=== PATIENT | male | born 1965 | race Caucasian/White ===

== ENCOUNTER 2023-04-19 08:35 | Outpatient (AMB) | payer OTHER, SELFPAY ==
[2023-04-19 08:35] VITALS: BMI 36.3
--- NOTE | 2023-04-19 09:31 | A.OFFVIS_ITS ---
Intake VS Expanded 04/19/23 08:35 Height 5 ft 7.99 in Weight 238 lb 8.642 oz BMI 36.3 Intake Visit Reasons: DM/ Confirmed Medication List - Last Reconciled 04/26/[address], LDN dulaglutide (Trulicity) 1.5 mg subcut QWEEK metformin 500 mg PO TID HPI Nutrition Presentation Details Pt presents for MNT for T2DM. The Pt was referred by Dr. Calro Yeager Pt reports needing information on diet recommendations. He reports forgetting to take his DM meds. Today we will discuss basic nutrition information for DM food frequency ETOH 2-3 servings/mixed smoking:denies starches > 23 servings fruits:0-3 protein 10-12 oz/d non starchy vegetables 2 serving/d dairy : 4 serving/d beverages: water, diet beverages physical activity: sedentary A1c at 8.4% on 12/2022 Chol 123, Tg 251, HDL 26, LDL 47 Diagnosis Nutrition problem #1 food nutri know defi As related to (etiology) #1 diagnosis As evidenced by (sign/symptom) #1 knowledge deficit of diet Most Recent Diabetes Results: No Data to Display Assessment & Plan Assessment & Plan (1) T2DM (type 2 diabetes mellitus): Code(s): E11.9 - Type 2 diabetes mellitus without complications Plan: wt: 108 kg Est kcal needs as per MSJ: 2300 (40% carb, 30% protein/fat) Est fluid needs as per 25-30 ml/d: 2700 Est prot per day as per 1 g/kg bw: 108 Recommend fiber intake : 8-10 g per day and gradually increase to 25-28 g per day for women and 35-38 g for men or as tolerated Recommend sodium intake per day : less than 2000 mg Educated patient on: ( R = reviewed V = verbalizes understanding N/R = needs review N/A = not applicable * Food sources of carbohydrate, adequate serving sizes and its role in various health conditions: R * Differences between complex carbohydrates a simple carbohydrates, role of fiber in diet: NR * Differences between types of fats and role in diet (mono on saturated fat fatty acids, saturated fatty acids, trans fats): R low fat basic * Food sources of sodium in salt and healthy modifications for heart health in kidney health: NR * Vitamins and minerals: NR * Healthy plate method concept: R * Physical activity: Benefits a precaution: R * Hypoglycemia protocol (rule of 15): NR * Dietary prevention of Hyperglycemia: R Patient Instructions: Become familiar with food portion sizes and amount of grams of carb per serving work on reducing your carbs to 60 g at dinner following healthy plate method - see meal ideas Practice mindful eating strategies Coding Level of Care Code Nutr Indiv Intake (98936) Diagnoses T2DM (type 2 diabetes mellitus) E11.9
== END 2023-04-19 10:44 | disposition home or self-care (01) ==
PROVIDERS: PCP Internal Medicine; Visit Provider Dietitian, Registered
DX: E11.9 Type 2 diabetes mellitus without complications (principal)

== ENCOUNTER → 2023-04-19 08:35 | Outpatient (BNVA) | payer OTHER, SELFPAY | PROVIDERS: PCP Internal Medicine; Visit Provider Registered Nurse Diabetes Educator | DX: E11.9 Type 2 diabetes mellitus without complications (principal); Z68.36 Body mass index [BMI] 36.0-36.9, adult; Z71.3 Dietary counseling and surveillance | CPT/HCPCS: 97802 ==

== ENCOUNTER 2023-05-30 08:57 | Outpatient (AMB) | payer OTHER, SELFPAY ==
[2023-05-30 09:04] VITALS: BMI 36.2
--- NOTE | 2023-05-30 09:04 | A.OFFVIS_ITS ---
Intake VS Expanded 05/30/23 09:04 Height 5 ft 7.99 in Weight 238 lb 5.115 oz BMI 36.2 Intake Visit Reasons: t2dm HPI Nutrition Presentation Details Pt presents for MNT f/u for T2DM Pt reports monitoring bg and having 91 % of BG within target and 8% between 181- 240 mg/ Pt reports working on diet modifications.Today will discuss low sodium concepts. Most Recent Diabetes Results: No Data to Display Assessment & Plan Assessment & Plan (1) T2DM (type 2 diabetes mellitus): Code(s): E11.9 - Type 2 diabetes mellitus without complications Plan: wt: 108 kg Est kcal needs as per MSJ: 2300 (40% carb, 30% protein/fat) Est fluid needs as per 25-30 ml/d: 2700 Est prot per day as per 1 g/kg bw: 108 Recommend fiber intake : 8-10 g per day and gradually increase to 25-28 g per day for women and 35-38 g for men or as tolerated Recommend sodium intake per day : less than 2000 mg Educated patient on: ( R = reviewed V = verbalizes understanding N/R = needs review N/A = not applicable * Food sources of carbohydrate, adequate serving sizes and its role in various health conditions: R * Differences between complex carbohydrates a simple carbohydrates, role of fiber in diet: R * Differences between types of fats and role in diet (mono on saturated fat fatty acids, saturated fatty acids, trans fats): R low fat basic * Food sources of sodium in salt and healthy modifications for heart health in kidney health: R * Vitamins and minerals: NR * Healthy plate method concept: R * Physical activity: Benefits a precaution: R * Hypoglycemia protocol (rule of 15): NR * Dietary prevention of Hyperglycemia: R Patient Instructions: Increase fiber intake - eat apple with skins , pears with skins - aim at having 2 fruits a day inplace of pastries Choose low sodium food sources (fruits/veg, low sodium seasonings, lower sodium cereal/cheese /food options) see education material regarding low sodium food concepts discussed Coding Level of Care Code Nutr Indiv Subseq (15063) Diagnoses T2DM (type 2 diabetes mellitus) E11.9 Time Spent (min) 30
== END 2023-05-30 09:36 | disposition home or self-care (01) ==
PROVIDERS: PCP Internal Medicine; Visit Provider Dietitian, Registered
DX: E11.9 Type 2 diabetes mellitus without complications (principal)

== ENCOUNTER → 2023-05-30 08:57 | Outpatient (BNVA) | payer OTHER, SELFPAY | PROVIDERS: PCP Internal Medicine; Visit Provider Dietitian, Registered | DX: E11.9 Type 2 diabetes mellitus without complications (principal); Z71.3 Dietary counseling and surveillance | CPT/HCPCS: 97803 ==